=== PATIENT | male | born 1965 | race Caucasian/White ===

== ENCOUNTER 2023-11-15 11:30 | Emergency (ER) | payer OTHER, SELFPAY ==
[~2023-11-15] VITALS: Ht 165.1 cm; Wt 136.6 kg
[2023-11-15 11:31] VITALS: BP 139/82; TEMP 97.3; O2SAT 97
[2023-11-15] MEDS ORDERED: VALS320T3 PO (11:57)
[2023-11-15] MEDS ORDERED: PANT40TA29 PO (11:57)
[2023-11-15] MEDS ORDERED: ATOR40TA75 PO (11:57)
[2023-11-15] MEDS ORDERED: NIFE1TAB50 PO (11:57)
[2023-11-15] MEDS ORDERED: METO1TAB33 PO (11:57)
== END 2023-11-15 13:05 | disposition left against medical advice (07) ==
LOC: M ED 11:30
DX: Z53.21 Procedure and treatment not carried out due to patient leaving prior to being seen by health care provider (principal)